=== PATIENT | male | born 1950 | race Caucasian/White ===

== ENCOUNTER 2024-10-04 05:26 | Day surgery (SDC) | payer OTHER ==
[2024-10-03 12:17] VITALS: BMI 26.7
[2024-10-04 10:21] VITALS: TEMP 98
[2024-10-04 10:54] VITALS: PULSE 66
[2024-10-04 10:56] VITALS: BP 131/69; RESP 19
== END 2024-10-04 11:00 | disposition home or self-care (01) ==
LOC: JASU-ENDO 05:26
PROVIDERS: ATTEND Internal Medicine Gastroenterology
PROC: 0DBN8ZX Excision of Sigmoid Colon, Via Natural or Artificial Opening Endoscopic, Diagnostic (ICD-10-PCS; principal; 2024-10-04 09:00)
DX: D12.5 Benign neoplasm of sigmoid colon (principal); K64.8 Other hemorrhoids
CPT/HCPCS: 88305-TC